=== PATIENT | male | born 1965 | race Native Hawaiian/Other Pacific Islander ===

== ENCOUNTER 2016-07-11 18:16 | Observation (INO) | payer BC ==
[~2016-07-11] VITALS: Ht 175.3 cm; Wt 76.9 kg
[2016-07-11 21:11] LABS: PLATELET COUNT 125 K/uL (142-355)
[2016-07-11 21:32] LABS: POTASSIUM 4.5 mmol/L (3.6-5.2); SODIUM 136 mmol/L (136-145)
[2016-07-11 22:46] VITALS: BP 145/93; TEMP 97.8
[2016-07-12] VITALS (7 sets, daily range): BP systolic 112–124; BP diastolic 63–76; TEMP 97.4–98.4
[2016-07-13 04:00] VITALS: BP 117/69; TEMP 97.9
[2016-07-13 08:00] VITALS: BP 110/79; TEMP 98.2
[2016-07-13 12:00] VITALS: BP 133/82; TEMP 98
[2016-07-13 16:00] VITALS: BP 122/87; TEMP 97.8
== END 2016-07-13 19:03 | disposition home or self-care (01) ==
LOC: MED/SURG 18:16
PROVIDERS: ADMIT Family Medicine
DX: R07.89 Other chest pain (principal); R42 Dizziness and giddiness; R06.09 Other forms of dyspnea; Z82.49 Family history of ischemic heart disease and other diseases of the circulatory system; E86.0 Dehydration
CPT/HCPCS: 36415; 80053; 81000; 82550; 84484; 85027; 85610; 85730; 93005; 96360; 96361; 96372; 99220; G0378; G0379; J1650